=== PATIENT | male | born 2000 | race Two or more races ===

== ENCOUNTER 2023-05-30 14:50 | Emergency (ER) | payer BC ==
[~2023-05-30] VITALS: Ht 172.7 cm; Wt 59.0 kg
[2023-05-30] MEDS ORDERED: ONDANSETRON HCL 4 MG/2 ML VIAL IM ONE (15:15)
[2023-05-30] MEDS ORDERED: LIDOCAINE VISCOUS 2% 15ML UD PO ONE (15:15)
[2023-05-30] MEDS ORDERED: METOCLOPRAMIDE HCL 5MG/ml INJ 2ml VIAL IM ONE (15:15)
[2023-05-30] MEDS ORDERED: MAALOX PLUS or MAALOX 30 ML PO ONE (15:15)
[2023-05-30 15:35] LABS: Basophils # (auto) 0.3 10 ^3/uL (0-0.2); Basophils % (auto) 1.6 % (0.0-2.0); Eosinophils # (auto) 0.1 10 ^3/uL (0-0.8); Eosinophils % (auto) 0.3 % (0.0-7.0); Hematocrit 46.6 % (41.0-53.0); Hemoglobin 16.1 g/dL (13.5-17.5); Lymphocytes # (auto) 1.9 10 ^3/uL (0.4-5.4); Lymphocytes % (auto) 11.3 % (10.0-50.0); Mean Corpuscular Hemoglobin 28.9 pg (28.0-32.0); Mean Corpuscular Hgb Conc. 34.6 g/dL (32.0-36.0); Mean Corpuscular Volume 83.5 fL (80.0-100.0); Monocytes # (auto) 0.6 10 ^3/uL (0-1.3); Monocytes % (auto) 3.4 % (0.0-12.0); Neutrophils % (auto) 83.4 % (37.0-80.0); Nucleated Red Blood Cells % 0.1 %; Red Blood Cells 5.58 10^6/uL (4.5-5.90); Red Cell Distribution Width 13.8 % (11.8-14.3); White Blood Cell 16.8 10^3/uL (4.4-10.8)
[2023-05-30 15:52] LABS: Alanine Aminotransferase 19 U/L (7-40); Albumin 5.1 g/dL (3.2-4.8); Alkaline Phosphatase 80 U/L (46-116); Anion Gap 19 (5-15); Aspartate Aminotransferase 23 U/L (13-40); BUN/Creatinine Ratio 23.3 (10.0-20.0); Bilirubin, Total 0.9 mg/dL (0.2-1.0); Blood Alcohol 4.7 mg/dL (<10); Blood Urea Nitrogen 20 mg/dL (9-23); Calcium 10.2 mg/dL (8.7-10.4); Carbon Dioxide 16 mmol/L (20-30); Chloride 102 mmol/L (98-107); Glucose 91 mg/dL (74-106); Potassium 3.7 mmol/L (3.5-5.1); Sodium 137 mmol/L (136-145); Total Protein 8.5 g/dL (5.7-8.2)
[2023-05-30] MEDS ORDERED: OMEP20TA85 PO (19:36)
[2023-05-30] MEDS ORDERED: DICY10CA PO (19:36)
[2023-05-30] MEDS ORDERED: ZOFR4T PO (19:36)
[2023-05-30 20:09] VITALS: BP 120/57; PULSE 60; RESP 18; TEMP 98.1; O2SAT 98
== END 2023-05-30 20:11 | disposition home or self-care (01) ==
LOC: ER 14:50
DX: F10.10 Alcohol abuse, uncomplicated (principal); D72.829 Elevated white blood cell count, unspecified; R10.13 Epigastric pain; Y90.0 Blood alcohol level of less than 20 mg/100 ml
CPT/HCPCS: 36415; 74176; 80053; 80320; 84484; 85025; 86677; 96372; 99285; J2405; J2765

== ENCOUNTER 2024-05-15 12:24 | Emergency (ER) | payer BC ==
[~2024-05-15] VITALS: Ht 172.7 cm; Wt 50.6 kg
[~2024-05-15 12:24] MED LIST: DICY10CA PO; OMEP20TA85 PO; ZOFR4T PO
[2024-05-15 14:15] LABS: Basophils # (auto) 0 10 ^3/uL (0-0.2); Basophils % (auto) 0.2 % (0.0-2.0); Eosinophils # (auto) 0 10 ^3/uL (0-0.8); Hematocrit 43.6 % (41.0-53.0); Hemoglobin 15.4 g/dL (13.5-17.5); Lymphocytes # (auto) 1.1 10 ^3/uL (0.4-5.4); Lymphocytes % (auto) 12.2 % (10.0-50.0); Mean Corpuscular Hemoglobin 29.2 pg (28.0-32.0); Mean Corpuscular Hgb Conc. 35.3 g/dL (32.0-36.0); Mean Corpuscular Volume 82.8 fL (80.0-100.0); Monocytes # (auto) 0.5 10 ^3/uL (0-1.3); Monocytes % (auto) 5.1 % (0.0-12.0); Neutrophils # (auto) 7.6 10 ^3/uL (1.6-8.6); Neutrophils % (auto) 82.5 % (37.0-80.0); Platelet Count (auto) 243 10^3/uL (140-450); Red Blood Cells 5.27 10^6/uL (4.5-5.90); Red Cell Distribution Width 12.8 % (11.8-14.3); White Blood Cell 9.3 10^3/uL (4.4-10.8)
[2024-05-15 14:35] LABS: Alanine Aminotransferase 23 U/L (7-40); Alkaline Phosphatase 67 U/L (46-116); Anion Gap 8 (5-15); Aspartate Aminotransferase 12 U/L (13-40); BUN/Creatinine Ratio 16.4 (10.0-20.0); Blood Urea Nitrogen 11 mg/dL (9-23); Calcium 10.4 mg/dL (8.7-10.4); Carbon Dioxide 26 mmol/L (20-30); Chloride 99 mmol/L (98-107); Glucose 100 mg/dL (74-106); Potassium 4.2 mmol/L (3.5-5.1); Sodium 133 mmol/L (136-145); Total Protein 8.4 g/dL (5.7-8.2)
[2024-05-15 14:37] LABS: Urine Bacteria FEW /hpf (None Seen); Urine Blood Negative /uL (Negative); Urine Clarity Clear (Clear); Urine Protein, UAD TRACE (Negative); Urine Specific Gravity 1.024 (1.001-1.035); Urine Sperm PRESENT /hpf (None Seen); Urine Urobilinogen Normal (Negative); Urine WBC 1 /hpf (0 - 3); Urine pH 6.5 (5.0-9.0)
[2024-05-15 14:40] LABS: Urine Color Yellow (Yellow)
[2024-05-15] MEDS ORDERED: MAGN100T6 OR (14:42)
[2024-05-15 14:48] LABS: INR 1.14 (0.9-1.15); Partial Thromboplastin Time 30.6 SEC (24.5-34.5)
[2024-05-15 15:15] VITALS: BP 125/80; PULSE 60; RESP 18; TEMP 97.9; O2SAT 99
== END 2024-05-15 15:18 | disposition home or self-care (01) ==
LOC: ER 12:24
DX: K59.00 Constipation, unspecified (principal); Z79.899 Other long term (current) drug therapy
CPT/HCPCS: 36415; 74176; 80053; 81001; 85025; 85610; 85730